=== PATIENT | female | born 1970 | race Hispanic/Latino ===

== ENCOUNTER → 2021-10-26 | Day surgery (SDC) | payer OTHER ==
[~2021-10-26] MED LIST: DEXAMETHASONE SOD PHOS INJ 4 MG/ML SDV ONE; EPHEDRINE SULFATE INJ 50 MG/ML VIAL ONE; FENTANYL CITRATE/PF 100MCG/2 ML INJ ONE; KETOROLAC TROMETHAMINE 30 MG/ML VIAL ONE; LIDOCAINE HCL 2% LOCAL INJ 5 ML SDV VIAL INJ ONE; MIDAZOLAM HCL 2 MG/2 ML VIAL ONE; ONDANSETRON HCL INJ 2MG/ML 2ML 2 MG/ML VIAL ONE; POVIDONE IODINE 0.05% 0.05 % ML PO ONE; PROPOFOL IV EMULSION 10 MG/ML 20 ML VIAL ONE; SEVOFLURANE INHAL SOLN 250 ML PEN BTL ONE; SODIUM CHLORIDE 0.9% 50ML 50 ML ONE
[2021-10-26 11:15] VITALS: BP 129/86
== END | disposition home or self-care (01) ==
LOC: OR 08:09
PROVIDERS: ATTEND Specialist
DX: S83.231A Complex tear of medial meniscus, current injury, right knee, initial encounter (principal); M22.41 Chondromalacia patellae, right knee; M65.861 Other synovitis and tenosynovitis, right lower leg; I10 Essential (primary) hypertension; E78.5 Hyperlipidemia, unspecified; E66.9 Obesity, unspecified; X58.XXXA Exposure to other specified factors, initial encounter; Z68.33 Body mass index [BMI] 33.0-33.9, adult
CPT/HCPCS: 29881; 81025; 93005; J0690; J1100; J1885; J2001; J2250; J2405; J2704; J3010; U0002